=== PATIENT | female | born 1995 | race African-American/Black ===

== ENCOUNTER 2017-04-30 09:05 | Emergency (ER) | payer OTHER ==
[2017-04-30 09:12] VITALS: BP 130/74; PULSE 100; TEMP 98; BMI 36.3
--- NOTE | 2017-04-30 10:11 | PDOC ---
History of Present Illness - General Chief Complaint: Cold Symptoms Stated Complaint: COLD SYMPTOMS Time Seen by Provider: 04/30/17 09:34 History Source: Patient Exam Limitations: No Limitations - History of Present Illness Initial Comments: 04/30/17 10:28 My Chief Complaint: sneezing, nasal congestion, sore throat, cough History of present illness: Patient is a 21-year-old female with no significant medical issues 21 weeks here today complaining of a productive cough of dark yellow, sore throat, nasal congestion with sneezing 5 days. Patient denies any shortness of breath. She denies any nausea or vomiting or difficulty swallowing or breathing. Patient denies any abdominal discomfort. Her nephew is sick with similar symptoms. Patient has had no recent travel. Timing/Duration: intermittent, other (5 days) Severity: mild (sneezing, nasal congestion, productive cough, sore throat ) Associated Symptoms: reports: cough (productive yellowish ), other (sore throat , nasal congestion ) Past History - Past Medical History Allergies/Adverse Reactions: Allergies Allergy/AdvReac Type Severity Reaction Status Date / Time No Known Allergies Allergy Verified 04/30/17 09:12 Home Medications: Ambulatory Orders Azithromycin [Zithromax 250mg Tablets -] 250 mg PO UTDICT #6 tab 04/30/17 COPD: No Other medical history: NONE - Suicide/Smoking/Psychosocial Hx Smoking Status: No Smoking History: Never smoked Number of Cigarettes Smoked Daily: 0 Hx Alcohol Use: No Drug/Substance Use Hx: No Substance Use Type: None Review of Systems - Review of Systems Able to Perform ROS?: Yes Constitutional: No: Symptoms Reported HEENTM: Yes: Nose Congestion, Throat Pain Respiratory: Yes: Productive cough (yellowish for 5 days ). No: Shortness of Breath, SOB with Exertion, SOB at Rest, Stridor, Wheezing Cardiac (ROS): No: Symptoms Reported ABD/GI: No: Symptoms Reported : No: Symptoms Reported Musculoskeletal: No: Symptoms Reported Integumentary: No: Symptoms Reported *Physical Exam - Vital Signs Last Vital Signs Temp Pulse Resp BP Pulse Ox 98.0 F 100 H 20 130/74 98 04/30/17 09:10 04/30/17 09:10 04/30/17 09:10 04/30/17 09:10 04/30/17 09:10 - Physical Exam General Appearance: Yes: Appropriately Dressed HEENT: positive: TMs Normal, Pharyngeal Erythema, Tonsillar Erythema (with no uvular deviation ), Nasal Congestion. negative: Muffled/Hoarse voice, Tonsillar Exudate, Rhinorrhea, Sinus Tenderness Neck: negative: Lymphadenopathy (R), Lymphadenopathy (L) Respiratory/Chest: positive: Lungs Clear, Normal Breath Sounds. negative: Chest Tender, Respiratory Distress Cardiovascular: positive: Regular Rhythm, Regular Rate, S1, S2 Integumentary: positive: Normal Color Neurologic: positive: Alert, Normal Response, Responsive Medical Decision Making - Medical Decision Making 04/30/17 10:30 Patient is a 21-year-old female with no significant medical issues 21 weeks here today complaining of a productive cough of dark yellow, sore throat, nasal congestion with sneezing 5 days. Patient denies any shortness of breath. She denies any nausea or vomiting or difficulty swallowing or breathing. Patient denies any abdominal discomfort. Her nephew is sick with similar symptoms. Patient has had no recent travel. pharyngitis R/O strep throat Bronchitis nsasl congestion PLAN: throat C & S rapid negative azithromcyin 250 mg 2 tabs today than one tab daily for following 4 days 04/30/17 11:16 *DC/Admit/Observation/Transfer Diagnosis at time of Disposition: Bronchitis, Nasal congestion - Discharge Dispostion Disposition: HOME Condition at time of disposition: Stable - Prescriptions Prescriptions: Azithromycin [Zithromax 250mg Tablets -] 250 mg PO UTDICT #6 tab - Referrals Referrals: Swati Vidal MD [Primary Care Provider] - - Patient Instructions Additional Instructions: Drink a lot a fluids and rest It might be helpful to put a humidifier next to your bed, clean as directed by maintenance worker swimming pool Follow-up with your primary care provider within the next few days Return to emergency room if symptoms worsen any difficulty swallowing or breathing Patient voiced understanding of discharge instructions and all questions were answered And thank you for choosing [facility] emergency room premedical needs today - Post Discharge Activity
== END 2017-04-30 11:28 | disposition home or self-care (01) ==
LOC: JERFT 09:05
DX: O26.892 Other specified pregnancy related conditions, second trimester (principal); J40 Bronchitis, not specified as acute or chronic; Z3A.21 21 weeks gestation of pregnancy
CPT/HCPCS: 87070; 87430; 99281-25

== ENCOUNTER 2017-07-24 18:21 | Emergency (ER) | payer OTHER ==
[2017-07-24 19:35] VITALS: BP 103/70; PULSE 100; BMI 48.8
--- NOTE | 2017-07-24 19:35 | PDOC ---
Rapid Medical Evaluation Time Seen by Provider: 07/24/17 19:31 Medical Evaluation: Allergies Allergy/AdvReac Type Severity Reaction Status Date / Time No Known Allergies Allergy Verified 04/30/17 09:12 07/24/17 19:31 pt c/o: cough x 4 days and sneezing since yesterday, 33 weeks , no fever Pt on brief exam: vss. lcta Pt ordered for : none pt to proceed to the ED: Discharge Disposition - Diagnosis Cough - Referrals - Patient Instructions - Post Discharge Activity
--- NOTE | 2017-07-24 21:06 | PDOC ---
History of Present Illness - General Chief Complaint: Cold Symptoms Stated Complaint: COUGH Time Seen by Provider: 07/24/17 19:31 History Source: Patient Exam Limitations: No Limitations - History of Present Illness Initial Comments: 07/24/17 21:03 This is a 21-year-old primigravida female who is a 33 weeks gestation who presents to the emergency department with 5 days of dry cough and 1 day of sneezing. She denies fevers, chills, headaches, sinus pain, worsening shortness of breath, abdominal pain, nausea, vomiting. Past History - Past Medical History Allergies/Adverse Reactions: Allergies Allergy/AdvReac Type Severity Reaction Status Date / Time No Known Allergies Allergy Verified 04/30/17 09:12 Home Medications: Ambulatory Orders NK [No Known Home Medication] 07/24/17 COPD: No - Suicide/Smoking/Psychosocial Hx Smoking Status: No Smoking History: Never smoked Have you smoked in the past 12 months: No Number of Cigarettes Smoked Daily: 0 Information on smoking cessation initiated: No Hx Alcohol Use: No Drug/Substance Use Hx: No Substance Use Type: None Respiratory Specific PMHX - Complaint Specific PMHX Angina: No Bronchitis: No Pneumonia: No Pulmonary Embolus: No TB (Tuberculosis): No Review of Systems - Review of Systems Able to Perform ROS?: Yes Is the patient limited Uzbek proficient: No Constitutional: No: Symptoms Reported HEENTM: Yes: See HPI Respiratory: Yes: See HPI Cardiac (ROS): No: Symptoms Reported ABD/GI: No: Symptoms Reported : No: Symptoms Reported Musculoskeletal: No: Symptoms Reported Integumentary: No: Symptoms Reported Neurological: No: Symptoms reported Endocrine: No: Symptoms Reported Hematologic/Lymphatic: No: Symptoms Reported *Physical Exam - Vital Signs Last Vital Signs Temp Pulse Resp BP Pulse Ox 97.2 F L 100 H 21 103/70 100 07/24/17 19:32 07/24/17 19:32 07/24/17 19:32 07/24/17 19:32 07/24/17 19:32 - Physical Exam General Appearance: Yes: Appropriately Dressed. No: Apparent Distress HEENT: positive: Normal ENT Inspection Neck: positive: Trachea midline, Supple Respiratory/Chest: positive: Lungs Clear, Normal Breath Sounds. negative: Respiratory Distress, Accessory Muscle Use Cardiovascular: positive: Regular Rhythm, Regular Rate, S1, S2. negative: Edema , Murmur Gastrointestinal/Abdominal: positive: Normal Bowel Sounds Extremity: positive: Normal Capillary Refill Integumentary: positive: Normal Color, Dry, Warm Neurologic: positive: Alert, Normal Response Medical Decision Making - Medical Decision Making 07/24/17 21:09 A/P: 21-year-old Primigravid woman without significant past medical history and currently 33 weeks gestation with cough and sneezing Oropharynx clear without erythema or exudates. No sinus tenderness. Lungs clear to auscultation bilaterally Upper respiratory infection. Will advise patient on symptomatically treatment area I will stress the importance of avoiding all cough medicines with the exception cepacol. *DC/Admit/Observation/Transfer Diagnosis at time of Disposition: Cough Upper respiratory infection Qualifiers: URI type: unspecified viral URI Qualified Code(s): J06.9 - Acute upper respiratory infection, unspecified - Discharge Dispostion Disposition: HOME Condition at time of disposition: Stable Admit: No - Referrals Referrals: Swati Vidal MD [Primary Care Provider] - - Patient Instructions Printed Discharge Instructions: DI for Viral Upper Respiratory Infection -- Adult Additional Instructions: Rest, drink lots of fluids: Teas, water, soups, Pedialyte Saltwater gargles Steamy showers/seem to face break up mucus Avoid contact with others until fevers and cough resolved Lots of handwashing and good hygiene Continue [id number] medications for symptomatic relief Tylenol for fever and pain Cepacol lozenges for cough Followup with private physician in one to 2 days as needed Return to emergency department for worsened symptoms, fevers, dehydration - Post Discharge Activity
[2017-07-24 21:19] VITALS: TEMP 97.6
== END 2017-07-24 21:22 | disposition home or self-care (01) ==
LOC: JERFT 18:21
DX: O99.89 Other specified diseases and conditions complicating pregnancy, childbirth and the puerperium (principal); J06.9 Acute upper respiratory infection, unspecified; Z3A.33 33 weeks gestation of pregnancy
CPT/HCPCS: 99281-25

== ENCOUNTER 2017-08-31 20:23 | Inpatient (IN) | payer OTHER ==
[2017-08-31] MEDS ORDERED: AMPICILLIN - 2 GM in SODIUM CHLORIDE 100 ML IVPB ONE (21:00)
[2017-08-31] MEDS ORDERED: DEXTROSE 5%-LACTATED RINGERS 1,000 ML IV SCH (21:30)
[2017-08-31 21:35] VITALS: BMI 51.7
[2017-08-31] MEDS ORDERED: AMPICILLIN SODIUM 2 GM VIAL ONE (21:57)
[2017-08-31 22:10] LABS: URINE APPEARANCE SLCLOUDY; URINE BILIRUBIN NEGATIVE (<2.0 mg/dL); URINE BLOOD NEGATIVE (NEGATIVE); URINE COLOR YELLOW; URINE GLUCOSE (UA) NEGATIVE (NEGATIVE); URINE KETONE NEGATIVE (NEGATIVE); URINE LEUK ESTERASE TRACE (NEGATIVE); URINE NITRITE NEGATIVE (NEGATIVE); URINE PROTEIN NEGATIVE (NEGATIVE); URINE UROBILINOGEN NEGATIVE mg/dL (0.2-1.0)
[2017-08-31 22:13] LABS: EPI CELLS FEW /HPF (FEW); URINE MUCUS RARE
[2017-08-31 22:14] LABS: EOS % 1.4 % (0-4.5); HEMATOCRIT 39.5 % (32.4-45.2); HEMOGLOBIN 13.4 GM/dL (10.7-15.3); LYMPH % 25.5 % (8-40); MCH 28.5 pg (25.7-33.7); MEAN PLT VOLUME 9.2 fl (7.5-11.1); MONO % 10.7 % (3.8-10.2); NEUT % 61.4 % (42.8-82.8); PLATELET COUNT 273 K/MM3 (134-434); WHITE BLOOD COUNT 8.9 K/mm3 (4.0-10.0)
[2017-08-31 22:21] LABS: COCAINE, UR NEGATIVE ng/ml (CUTOFF=300); METHADONE, UR NEGATIVE ng/ml (CUTOFF=300); OPIATES, URI NEGATIVE ng/ml (CUTOFF=300); PHENCYCLIDINE,URINE NEGATIVE ng/ml (CUTOFF=25); URINE AMPHETAMINES NEGATIVE ng/ml (CUTOFF=500); URINE BARBITURATES NEGATIVE ng/ml (CUTOFF=200); URINE BENZODIAZEPINES NEGATIVE ng/ml (CUTOFF=200)
[2017-08-31 22:24] LABS: INR 0.87 (0.82-1.09); PROTHROMBIN TIME (PATIENT) 9.8 SEC (9.98-11.88)
[2017-08-31 22:27] LABS: ACTIVATED PTT 28.9 SECONDS (26.9-34.4)
[2017-08-31 22:31] LABS: ANION GAP 12 (8-16); BLOOD UREA NITROGEN 8 mg/dL (7-18); CALCIUM 8.7 mg/dL (8.5-10.1); CHLORIDE 104 mmol/L (98-107); CO2 22 mmol/L (21-32); CREATININE 0.6 mg/dL (0.55-1.02); GLUCOSE,RANDOM 84 mg/dL (74-106); POTASSIUM 4.1 mmol/L (3.5-5.1); SODIUM 138 mmol/L (136-145)
--- NOTE | 2017-08-31 23:11 | HP ---
Past Medical History - Admission Chief Complaint: Leakage of fluid History of Present Illness: 21 yo , LMP 11/29/16, EDC 09/09/17, @ 38.5 weeks gestation presents to L&D c /o rupture of membrane at 6pm. She follows up at [facility] for care. She's morbidly obese. She denies any contractions pain. History Source: Patient Limitations to Obtaining History: No Limitations - Past Medical History ...: 1 ...Para: 0 ...Term: 0 ...: 0 ...Spon : 0 ...Induced : 0 ...Multiple Gestation: 0 ...LMP: 11/29/16 ... Weeks Gestation by Dates: 39.2 ...EDC by Dates: 09/05/17 ...EDC by Sono: 09/09/17 - Past Surgical History Past Surgical History: Yes: None Hx Myomectomy: No Hx Transabdominal Cerclage: No - Smoking History Smoking history: Never smoked Have you smoked in the past 12 months: No Aproximately how many cigarettes per day: 0 - Alcohol/Substance Use Hx Alcohol Use: No History of Substance Use: reports: None - Social History Usual Living Arrangement: Yes: Alone History of Recent Travel: No Home Medications - Allergies Allergies/Adverse Reactions: Allergies Allergy/AdvReac Type Severity Reaction Status Date / Time No Known Allergies Allergy Verified 08/31/17 21:27 - Home Medications Home Medications: Ambulatory Orders Vitamins (Sjr) - 1 tab PO DAILY 08/31/17 Review of Systems - Review of Systems Constitutional: reports: No Symptoms Eyes: reports: No Symptoms HENT: reports: No Symptoms Neck: reports: No Symptoms Cardiovascular: reports: No Symptoms Respiratory: reports: No Symptoms Gastrointestinal: reports: No Symptoms Genitourinary: reports: Other (Leakage of fluid) Breasts: reports: No Symptoms Reported Musculoskeletal: reports: No Symptoms Neurological: reports: No Symptoms Hematology/Lymphatic: reports: No Symptoms Psychiatric: reports: No Symptoms Pain Intensity: 0 Physical Exam - Maternity Vital Signs: Vital Signs Temperature 98.2 F 08/31/17 22:00 Pulse Rate 98 H 08/31/17 22:00 Respiratory Rate 20 08/31/17 22:00 Blood Pressure 159/81 08/31/17 22:00 O2 Sat by Pulse Oximetry (%) Constitutional: Yes: Well Nourished Eyes: Yes: Conjunctiva Clear HENT: Yes: Atraumatic Neck: Yes: Supple Cardiovascular: Yes: Regular Rate and Rhythm Lungs: Clear to auscultation Breast(s): Yes: WNL - Abdominal Exam/OB Number of Fetuses: Single Presentation: Vertex Intensity: Unaware - Vaginal Exam/OB Dilatation (cm): 1-2 Effacement (%): 70 Amniotic Membrane Status: Ruptured Nitrazine Test: Positive Amniotic Fluid: Yes: Clear Presentation: Vertex/Position Station: -3 - Physical Exam Musculoskeletal: Yes: WNL Extremities: No: Calf Tenderness ...Motor Strength: WNL Psychiatric: Yes: Alert, Oriented - Labs Lab Results: CBC, BMP 08/31/17 21:45 08/31/17 21:45 Problem List - Problems (1) SROM (spontaneous rupture of membranes) Code(s): NCR6275 - Assessment/Plan Spontaneous rupture of membrane Morbid obesity Consider transfer to [facility]
--- NOTE | 2017-08-31 23:53 | DS ---
Physical Examination Vital Signs: Vital Signs Temperature 98.2 F 08/31/17 22:00 Pulse Rate 93 H 08/31/17 23:00 Respiratory Rate 19 08/31/17 23:00 Blood Pressure 126/75 08/31/17 23:00 O2 Sat by Pulse Oximetry (%) Neck: Yes: Supple, Trachea Midline Cardiovascular: Yes: Regular Rate and Rhythm Respiratory: Yes: Regular Gastrointestinal: Yes: Normal Bowel Sounds Integumentary: Yes: WNL Neurological: Yes: Alert, Oriented ...Motor Strength: WNL Psychiatric: Yes: Alert, Oriented Labs: CBC, BMP 08/31/17 21:45 08/31/17 21:45 Discharge Summary Reason For Visit: LABOR Current Active Problems SROM (spontaneous rupture of membranes) (Acute) Procedures: Principal: Non Stress Test Hospital Course: Patient presents c/o spontaneous rupture of membrane. She was then transferred to [facility]. Condition: Good - Instructions Diet, Activity, Other Instructions: Regular diet Disposition: TRANSFER ACUTE CARE/OTHER HOSP - Home Medications Comprehensive Discharge Medication List: Ambulatory Orders Vitamins (Sjr) - 1 tab PO DAILY 08/31/17
[2017-09-01 00:17] VITALS: BP 148/89; PULSE 96
[2017-09-01 00:46] VITALS: TEMP 98
[2017-09-01] MEDS ORDERED: AMPICILLIN - 1 GM in SODIUM CHLORIDE 100 ML IVPB SCH (01:00)
== END 2017-09-01 00:57 | disposition short-term general hospital (02) | DRG 566 ==
LOC: JDEL 20:23 → JLDR 21:00
PROVIDERS: ADMIT Obstetrics & Gynecology; ATTEND Obstetrics & Gynecology
DX: O42.92 Full-term premature rupture of membranes, unspecified as to length of time between rupture and onset of labor (principal); Z68.43 Body mass index [BMI] 50.0-59.9, adult; E66.01 Morbid (severe) obesity due to excess calories; O99.213 Obesity complicating pregnancy, third trimester; Z3A.38 38 weeks gestation of pregnancy
CPT/HCPCS: 36415; 80048; 80307; 81003; 81015; 85025; 85610; 85730; 86593; 86850; 86900; 86901; 87389

== ENCOUNTER 2018-05-05 23:48 | Emergency (ER) | payer OTHER ==
--- NOTE | 2018-05-06 00:27 | PDOC ---
History of Present Illness - General Stated Complaint: CHEST PAIN Time Seen by Provider: 05/05/18 23:57 History Source: Patient Exam Limitations: No Limitations - History of Present Illness Timing/Duration: other (ribcage pain for 4 days) Past History - Past Medical History Allergies/Adverse Reactions: Allergies Allergy/AdvReac Type Severity Reaction Status Date / Time No Known Allergies Allergy Verified 05/06/18 00:34 Asthma: No Cancer: No Cardiac Disorders: No COPD: No Diabetes: No HTN: No Seizures: No Thyroid Disease: No - Suicide/Smoking/Psychosocial Hx Smoking Status: No Smoking History: Never smoked Have you smoked in the past 12 months: No Number of Cigarettes Smoked Daily: 0 Hx Alcohol Use: No Drug/Substance Use Hx: No Substance Use Type: None Hx Substance Use Treatment: No Review of Systems - Review of Systems Able to Perform ROS?: Yes Is the patient limited Albanian proficient: No Constitutional: No: Symptoms Reported, See HPI, Chills, Diaphoresis, Fever, Loss of Appetite, Malaise, Night Sweats, Weakness, Weight Stable, Unintentional Wgt. Loss, Unexplained wgt Loss, Other HEENTM: No: Symptoms Reported, See HPI, Eye Pain, Blurred Vision, Tearing, Recent change in vision, Double Vision, Cataracts, Ear Pain, Ocular Prothesis, Ear Discharge, Nose Pain, Nose Congestion, Tinnitus, Nose Bleeding, Hearing Loss , Throat Pain, Throat Swelling, Mouth Pain, Dental Problems, Difficulty Swallowing, Mouth Swelling, Other Respiratory: No: Symptoms reported, See HPI, Cough, Orthopnea, Shortness of Breath, SOB with Exertion, SOB at Rest, Stridor, Wheezing, Productive cough, Hemoptysis, Other Cardiac (ROS): No: Symptoms Reported, See HPI, Chest Pain, Edema, Irregular Heart Rate, Lightheadedness, Palpitations, Syncope, Chest Tightness, Other ABD/GI: No: Symptoms Reported, See HPI, Abdominal Distended, Abd. Pain w/ defecation, Blood Streaked Bowels, Constipated, Diarrhea, Difficulty Swallowing , Nausea, Poor Appetite, Poor Fluid Intake, Rectal Bleeding, Vomiting, Indigestion, Abdominal cramping, Tarry Stools, Other : No: Symptoms Reported, See HPI, Burning, Dysuria, Discharge, Frequency, Flank Pain, Hematuria, Incontinence, Pain, Urgency, Testicular Mass, Testicular Swelling, Lesions, Testicular Pain, Other Musculoskeletal: Yes: Other (left anterior ribcage pain) Integumentary: No: Symptoms Reported, See HPI, Bruising, Change in Color, Change in Hair/Nails, Dryness, Erythema, Flushing, Lesions, Lumps, Pallor, Pruritus, Rash, Sweating, Other Neurological: No: Symptoms reported, See HPI, Headache, Numbness, Paresthesia, Pre-Existing Deficit, Seizure, Tingling, Tremors, Weakness, Unsteady Gait, Ataxia, Dizziness, Other Psychiatric: No: Anxiety, Depression, Frequent Crying, Stressors, Sleep Pattern Change, Emotional Problems, Mood Swings, Change in Appetite, Other Endocrine: No: Symptoms Reported, See HPI, Excessive Sweating, Flushing, Intolerance to Cold, Intolerance to Heat, Increased Hunger, Increased Thirst, Increased Urine, Unexplained Weight Gain, Unexplained Weight Loss, Change in Weight, Other Hematologic/Lymphatic: No: Symptoms Reported, See HPI, Anemia, Blood Clots, Easy Bleeding, Easy Bruising, Bleeding Diathesis, Lymph Node Abnormalities, Swollen Glands, Other *Physical Exam - Physical Exam General Appearance: Yes: Obese HEENT: positive: Normal Voice Neck: positive: Supple Respiratory/Chest: positive: Lungs Clear Cardiovascular: positive: Regular Rhythm, Regular Rate Gastrointestinal/Abdominal: positive: Protuberent Musculoskeletal: positive: Normal Inspection Extremity: positive: Normal Inspection, Normal Range of Motion Integumentary: positive: Normal Color, Warm Neurologic: positive: Fully Oriented, Alert, Motor Strength 5/5 ED Treatment Course - LABORATORY CBC & Chemistry Diagram: 05/06/18 00:50 Medical Decision Making - Medical Decision Making 05/06/18 00:32 Morbidly obese 22-year-old female brought in by ambulance for left anterior rib cage pain since Friday when she helped her family move a refrigerator. Yesterday she had some pain and took Tylenol. She did the same thing this morning. However walking home she got excruciating pain, and called 911 She does not have any shortness of breath Past medical history denies any significant past medical history. Past surgical history none. 1, para 1. Childbirth this August 2017 05/06/18 02:08 05/06/18 02:31 *DC/Admit/Observation/Transfer - Discharge Dispostion Condition at time of disposition: Fair - Referrals - Patient Instructions - Post Discharge Activity
[2018-05-06 00:34] VITALS: BMI 47.6
[2018-05-06 01:35] LABS: ALBUMIN 3.4 g/dl (3.4-5.0); ALK PHOS 77 U/L (45-117); ANION GAP 5 MMOL/L (8-16); BILIRUBIN,TOTAL 0.5 mg/dL (0.2-1); BLOOD UREA NITROGEN 14 mg/dL (7-18); CALCIUM 8.4 mg/dL (8.5-10.1); CHLORIDE 105 mmol/L (98-107); CO2 29 mmol/L (21-32); CREATININE 0.9 mg/dL (0.55-1.3); GLUCOSE,RANDOM 99 mg/dL (74-106); POTASSIUM 4.1 mmol/L (3.5-5.1); SGOT/AST 13 U/L (15-37); SGPT/ALT 17 U/L (13-61); SODIUM 139 mmol/L (136-145); TOT PROT 7.6 g/dl (6.4-8.2)
[2018-05-06] MEDS ORDERED: IBUPROFEN 400 MG TABLET (FP) PO ONE ×2 (02:04→03:08)
--- NOTE | 2018-05-06 08:34 | PDOC ---
*Physical Exam - Vital Signs Last Vital Signs Temp Pulse Resp BP Pulse Ox 98.4 F 71 18 138/86 100 05/06/18 08:28 05/06/18 08:28 05/06/18 08:28 05/06/18 08:28 05/06/18 08:28 <Yumiko Varela - Last Filed: 05/06/18 08:30> - Vital Signs Last Vital Signs Temp Pulse Resp BP Pulse Ox 98.4 F 71 18 138/86 100 05/06/18 08:28 05/06/18 08:28 05/06/18 08:28 05/06/18 08:28 05/06/18 08:28 <Reymundo Justice - Last Filed: 05/06/18 09:42> ED Treatment Course - LABORATORY CBC & Chemistry Diagram: 05/06/18 00:50 - ADDITIONAL ORDERS Additional order review: Laboratory Results 05/06/18 05/06/18 05/06/18 00:50 00:50 00:50 Sodium 139 Potassium 4.1 Chloride 105 Carbon Dioxide 29 Anion Gap 5 L BUN 14 Creatinine 0.9 Creat Clearance w eGFR > 60 Random Glucose 99 Calcium 8.4 L Total Bilirubin 0.5 AST 13 L ALT 17 Alkaline Phosphatase 77 Troponin I < 0.02 Cancelled Total Protein 7.6 Albumin 3.4 Urine HCG, Qual Negative - Medications Given in the ED: ED Medications Discontinued Medications Generic Name Dose Route Start Last Admin Trade Name Freq PRN Reason Stop Dose Admin Ibuprofen 800 mg 05/06/18 02:04 05/06/18 03:12 Motrin - PO 05/06/18 02:05 800 mg ONCE ONE Administration <Yumiko Varela - Last Filed: 05/06/18 08:30> - LABORATORY CBC & Chemistry Diagram: 05/06/18 00:50 - ADDITIONAL ORDERS Additional order review: Laboratory Results 05/06/18 05/06/18 05/06/18 07:31 00:50 00:50 Sodium 139 Potassium 4.1 Chloride 105 Carbon Dioxide 29 Anion Gap 5 L BUN 14 Creatinine 0.9 Creat Clearance w eGFR > 60 Random Glucose 99 Calcium 8.4 L Total Bilirubin 0.5 AST 13 L ALT 17 Alkaline Phosphatase 77 Creatine Kinase 105 Troponin I < 0.02 < 0.02 Cancelled Total Protein 7.6 Albumin 3.4 Urine HCG, Qual 05/06/18 00:50 Sodium Potassium Chloride Carbon Dioxide Anion Gap BUN Creatinine Creat Clearance w eGFR Random Glucose Calcium Total Bilirubin AST ALT Alkaline Phosphatase Creatine Kinase Troponin I Total Protein Albumin Urine HCG, Qual Negative - Medications Given in the ED: ED Medications Discontinued Medications Generic Name Dose Route Start Last Admin Trade Name Edith PRN Reason Stop Dose Admin Ibuprofen 800 mg 05/06/18 02:04 05/06/18 03:12 Motrin - PO 05/06/18 02:05 800 mg ONCE ONE Administration <Reymundo Justice - Last Filed: 05/06/18 09:42> Medical Decision Making - Medical Decision Making 05/06/18 08:30 22 yo F ho obesity here with chest pain . signed out to me by dr. syed. awaiting repeat troponin. cxr unremarkble. ekg nonspecific findings. no risk factors for PE trop negative. follow up repeat troponoin.pending. will dc home on receipt of repeat trop and fu with cardiologyl; <Yumiko Varela - Last Filed: 05/06/18 08:30> *DC/Admit/Observation/Transfer <Yumiko Varela - Last Filed: 05/06/18 08:30> <Reymundo Justice - Last Filed: 05/06/18 09:42> Diagnosis at time of Disposition: Chest pain Qualifiers: Chest pain type: unspecified Qualified Code(s): R07.9 - Chest pain, unspecified - Discharge Dispostion Disposition: HOME Condition at time of disposition: Improved - Referrals Referrals: Swati Vidal MD [Primary Care Provider] - Neal Mcclellan MD [Staff Physician] - - Patient Instructions Printed Discharge Instructions: DI for Atypical Chest Pain Additional Instructions: you should follow up wtih your primary doctor. return for any problems or concerns. you can take ibuprofen 400 mg every 8 hrs as needed for pain. return for any difficulty breathing, recurrent pain or any concerns. - Post Discharge Activity
[2018-05-06 09:57] VITALS: BP 135/74; PULSE 81; TEMP 98.1
--- NOTE | 2018-05-06 11:40 | EKG ---
Test Reason : Blood Pressure : / mmHG Vent. Rate : 073 BPM Atrial Rate : 073 BPM P-R Int : 160 ms QRS Dur : 082 ms QT Int : 376 ms P-R-T Axes : 036 008 011 degrees QTc Int : 414 ms NORMAL SINUS RHYTHM MINIMAL VOLTAGE CRITERIA FOR LVH, MAY BE NORMAL VARIANT BORDERLINE ECG NO PREVIOUS ECGS AVAILABLE Confirmed by JAILENE SOARES MD ([id number]) on 05/06/2018 11:40:02 AM Referred By: Confirmed By:JAILENE SOARES MD
== END 2018-05-06 09:57 | disposition home or self-care (01) ==
LOC: JER 23:48
DX: R07.89 Other chest pain (principal); X50.0XXA Overexertion from strenuous movement or load, initial encounter; Y93.E9 Activity, other interior property and clothing maintenance; Y92.038 Other place in apartment as the place of occurrence of the external cause; Y99.8 Other external cause status
CPT/HCPCS: 36415; 71046-TC-FY; 71101-TC-FY; 80053; 82550; 84484; 84703; 93005; 93010; 99283-25

== ENCOUNTER 2018-11-25 18:19 | Emergency (ER) | payer OTHER | END 2018-11-25 19:45 | disposition home or self-care (01) | LOC: JERFT 18:19 ==

== ENCOUNTER 2019-01-18 01:59 | Emergency (ER) | payer OTHER ==
--- NOTE | 2019-01-18 02:25 | PDOC ---
History of Present Illness - General Stated Complaint: CHEST PAIN Time Seen by Provider: 01/18/19 02:07 History Source: Patient Exam Limitations: No Limitations - History of Present Illness Initial Comments: 01/18/19 02:20 23YOF with h/o morbid obesity, YOLANDE (not on CPAP x 16 months) who p/w midline anterior chest pressure which is non-reproducible and has been present for the past 90 minutes constantly. She denies SOB, palpitations, diaphoresis, f/c/n/v/d /c. She had dinner at 8:30 tonight, prior to the onset she was doing some house cleaning and then took a shower, and at this time had the onset. She had this happen once before a couple of months ago and was seen here in the ED, had negative cardiac workup, and was able to be discharged home. She has not taken any medications for her symptoms. Past History - Past Medical History Allergies/Adverse Reactions: Allergies Allergy/AdvReac Type Severity Reaction Status Date / Time No Known Allergies Allergy Verified 05/06/18 00:34 Home Medications: Ambulatory Orders Cyclobenzaprine HCl [Flexeril 10 mg] 10 mg PO BID 10 Days #20 tablet 11/25/18 Naproxen [Naprosyn] 500 mg PO BID 10 Days #20 tablet 11/25/18 Asthma: No Cancer: No Cardiac Disorders: No COPD: No Diabetes: No HTN: No Seizures: No Thyroid Disease: No - Immunization History TDAP Vaccination: Yes Immunization Up to Date: Yes - Suicide/Smoking/Psychosocial Hx Smoking Status: No Smoking History: Never smoked Have you smoked in the past 12 months: No Number of Cigarettes Smoked Daily: 0 Hx Alcohol Use: No Drug/Substance Use Hx: No Substance Use Type: None Hx Substance Use Treatment: No Review of Systems - Review of Systems Able to Perform ROS?: Yes Comments:: 01/18/19 02:30 GEN: no fever, chills, malaise, generalized weakness, or weight change HEENT: no ear pain, sore throat, vision change, or eye pain CV: chest pain, no palpitations, lightheadedness, syncope, or edema RESP: no cough, wheezing, or SOB GI: no abdominal pain, nausea, vomiting, diarrhea, constipation, or white/black/ bloody stool : no dysuria, hematuria, incontinence, retention, bleeding, or discharge MSK: no neck/back pain, muscle weakness/pain, or joint swelling/pain NEURO: no headache, seizure, vertigo, numbness, tingling, or focal weakness PSYCH: no substance use, no behavior change SKIN: no jaundice, no rash ROS otherwise negative except as noted in HPI *Physical Exam - Physical Exam Comments: 01/18/19 02:31 GENERAL: nontoxic-appearing, morbidly obese, A/Ox4, no distress, answers questions appropriately HEENT: PERRLA, EOMI, moist mucous membranes NECK/BACK: no midline ttp, no spinal stepoff or deformity, no hematoma, full ROM , neck supple CARDIOVASCULAR: regular rate/rhythm, normal S1S2, no MGR, strong peripheral pulses, capillary refill <2 seconds, extremities wwp, no edema CHEST WALL: tenderness to compression of the midsternal area LUNGS/RESPIRATORY: no respiratory distress, CTAB GI/ABDOMEN: symmetric glyp-ie-yefj, normoactive BS, soft, no ttp, no midline pulsatile masses : no CVA tenderness EXTREMITIES: no muscle atrophy, no acute deformity SKIN: warm and dry, no pallor, no jaundice, no rash, no bruising, no skin breakdown, no cuts, no lesions NEUROLOGICAL: GCS 15, CN II-XII grossly intact, 5/5 strength proximally and distally, no facial droop ED Treatment Course - LABORATORY CBC & Chemistry Diagram: 01/18/19 02:53 01/18/19 02:53 Medical Decision Making - Medical Decision Making 01/18/19 02:32 23YOF with morbid obesity and YOLANDE not on CPAP, who p/w chest pain. Initial Vital Signs Temp Pulse Resp BP Pulse Ox 98.6 F 85 19 159/96 100 01/18/19 02:00 01/18/19 02:00 01/18/19 02:00 01/18/19 02:00 01/18/19 02:00 Exam: As noted in Physical Exam section. DDX IBNLT: ACS, pericarditis, tamponade, aortic dissection, AAA, PTX, PE, esophageal tear, esophagitis (e.g. pill, infectious), esophageal stricture, esophageal FB, gastritis, PUD, pancreatitis, cholecystitis, cholangitis, colitis , bowel perforation, PNA/bronchitis, pleurisy, pleuritis, MVP, pulmonary HTN, musculoskeletal, panic/anxiety, etc. W/U ordered: Labs as noted below, EKG CXR. TX ordered: monitor, ASA 324, Pepcid, Maalox EKG: Reviewed; results as noted in ECG Review section. CXR: Nothing acute hCG is negative and patient's pain best fits picture of costochondritis; toradol ordered. 01/18/19 04:02 Patient is resting comfortably. Labs: Reassessment: Repeat VS: ADMIT Repeat cardiac enzymes ordered. HEART score indicated Pt is higher risk and should be managed in hospital with cardiology consult. The Pt is unsafe for discharge at this time. They require further hospital observation, workup, and treatment. Microblog sent to [facility] for admission.Blank Decision to Admit order is placed per ED protocol. Spoke with admitting team business center representative, in agreement Pt to be admitted to: Telemetry Decision to Admit order placed to admitting team covering attending. Consult order placed to cardiology on-call provider. DISCHARGE Repeat cardiac enzymes are negative. No new abnormal rhythms have been observed on the corking machine operator. On last reassessment VS are stable, Pts pain is resolved, and exam is benign. The Pts HEART score indicates they are low risk and do not require admission currently. The Pt is appropriate for discharge with close outpatient follow up. They are comfortable with this plan and will follow up with their primary care provider in 1-3 days. Specific return precautions are discussed and they will come back to the ER if necessary. *DC/Admit/Observation/Transfer - Referrals Referrals: Swati Vidal MD [Primary Care Provider] - Gregorio Felipe MD [Staff Physician] - - Patient Instructions Printed Discharge Instructions: DI for Chest Pain Additional Instructions: You were seen in the ER for chest pain. We did lab work on your blood and urine , an electrocardiogram, and a chest x-ray, and we did not find any concerning abnormalities. Your symptoms improved with the medications we gave you in the ER. After our assessment, we do not believe you are having a medical emergency at this time, and we believe you are safe to go home. Take over the counter pain medications for your pain, as instructed on the medication label. Please follow up with your primary care provider in 1-3 days. Also follow up with a roller coaster operator (we are giving you referral information). Call their clinic as soon as possible, tell them you were seen in the ER, and tell them you need an appointment. If you have any new or worsening symptoms, especially worsening chest pain, jaw pain, shoulder/arm pain, shortness of breath, sweats, nausea, loss of consciousness, palpitations, or other symptoms, please come back to the ER at any time (24 hours a day). If you are having severe or life threatening symptoms, or symptoms that make it unsafe to drive or have someone drive you, please call 911. - Post Discharge Activity
[2019-01-18] MEDS ORDERED: ASPIRIN 81 MG CHEWABLE TABLETS PO ONE (02:30)
[2019-01-18 02:32] VITALS: TEMP 98.6; BMI 50.8
[2019-01-18] MEDS ORDERED: ASPIRIN 81 MG CHEWABLE TABLETS ONE (02:54)
[2019-01-18 03:10] LABS: BASO % 1.3 % (0-2.0); EOS % 2.3 % (0-4.5); HEMATOCRIT 38.2 % (32.4-45.2); HEMOGLOBIN 12.7 GM/dL (10.7-15.3); LYMPH % 41.8 % (8-40); MCH 28.2 pg (25.7-33.7); MCHC 33.1 g/dl (32.0-36.0); MEAN CELL VOLUME 85.2 fl (80-96); MEAN PLT VOLUME 9.6 fl (7.5-11.1); MONO % 8.9 % (3.8-10.2); NEUT % 45.7 % (42.8-82.8); PLATELET COUNT 278 K/MM3 (134-434); RBC 4.48 M/mm3 (3.60-5.2); WHITE BLOOD COUNT 8.3 K/mm3 (4.0-10.0)
[2019-01-18] MEDS ORDERED: MAG HYDROX/AL HYDROX/SIMETH -MYLANTA- ORAL SUSPENSION PO ONE (03:18)
[2019-01-18] MEDS ORDERED: FAMOTIDINE 20 MG/50 ML IVPB 20 MG/50 ML MG IVPB ONE ×2 (03:18→03:35)
[2019-01-18] MEDS ORDERED: MAG HYDROX/AL HYDROX/SIMETH 30 ML UNIT-DOSE CUP ONE (03:34)
--- NOTE | 2019-01-18 03:35 | PDOC ---
Attending Attestation - Resident Resident Name: OdonnellAzeb - ED Attending Attestation I have performed the following: I have examined & evaluated the patient, The case was reviewed & discussed with the resident, I agree w/resident's findings & plan - HPI HPI: 01/18/19 03:42 Pt comes with 2 hrs of chest pain. She has hx of only obstructive sleep apnea. She came from home. 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 She has a gnawing repetetive pain; sounds like gastritis/GERD, but unclear, as pt thinks it is not related to food. Pt felt the pain when she was showering tonight. Pain for worse when she lay down. She has no hx of viral illness and this doesn't sound like pericarditis. Pt traveled to [facility] recently, but by plane. No long drives; pt is neither smoker or on OCPs. No risk factor for PE, only obesity. Pt has no fever and no chills Pt eats normally; she rarely skips meals. - Physicial Exam PE: 01/18/19 03:45 Agree with resident exam - Medical Decision Making 01/18/19 03:45 Pt has normal CBC and EKG and she is awaiting CXR and chemistries. She is not . 01/18/19 06:18 Labs normal. EKG normal; CXR normal. Pt will get a 2nd card enz and she will be discharged
[2019-01-18] MEDS ORDERED: KETOROLAC TROMETHAMINE 30 MG/1 ML VIAL IVPUSH ONE ×2 (03:44→03:49)
[2019-01-18] MEDS ORDERED: KETOROLAC TROMETHAMINE 30 MG/1 ML VIAL ONE (04:03)
[2019-01-18 04:23] LABS: ALBUMIN 3.4 g/dl (3.4-5.0); ALK PHOS 75 U/L (45-117); ANION GAP 5 MMOL/L (8-16); BILIRUBIN,TOTAL 0.2 mg/dL (0.2-1); BLOOD UREA NITROGEN 16.5 mg/dL (7-18); CALCIUM 9.1 mg/dL (8.5-10.1); CHLORIDE 104 mmol/L (98-107); CO2 29 mmol/L (21-32); GLUCOSE,RANDOM 105 mg/dL (74-106); LIPASE 215 U/L (73-393); POTASSIUM 3.7 mmol/L (3.5-5.1); SGOT/AST 8 U/L (15-37); SGPT/ALT 17 U/L (13-61); SODIUM 139 mmol/L (136-145); TOT PROT 7.2 g/dl (6.4-8.2)
[2019-01-18 04:30] LABS: PH,URINE 5.5 (5.0-8.0); URINE APPEARANCE CLEAR; URINE BILIRUBIN NEGATIVE (NEGATIVE); URINE COLOR YELLOW; URINE GLUCOSE (UA) NEGATIVE (NEGATIVE); URINE KETONE TRACE (NEGATIVE); URINE LEUK ESTERASE NEGATIVE (NEGATIVE); URINE NITRITE NEGATIVE (NEGATIVE); URINE PROTEIN NEGATIVE (NEGATIVE)
[2019-01-18 07:30] VITALS: BP 130/58; PULSE 68
--- NOTE | 2019-01-18 11:06 | EKG ---
Test Reason : Blood Pressure : / mmHG Vent. Rate : 071 BPM Atrial Rate : 071 BPM P-R Int : 180 ms QRS Dur : 088 ms QT Int : 376 ms P-R-T Axes : 037 009 009 degrees QTc Int : 408 ms NORMAL SINUS RHYTHM NORMAL ECG WHEN COMPARED WITH ECG OF 06-MAY-2018 00:47, NO SIGNIFICANT CHANGE WAS FOUND Confirmed by TIKI MACIEL MD ([id number]) on 01/18/2019 11:06:01 AM Referred By: Confirmed By:TIKI MACIEL MD
== END 2019-01-18 07:31 | disposition home or self-care (01) ==
LOC: JER 01:59
PROC: 3E033GC Introduction of Other Therapeutic Substance into Peripheral Vein, Percutaneous Approach (ICD-10-PCS; principal; 2019-01-18)
PROC: 3E0333Z Introduction of Anti-inflammatory into Peripheral Vein, Percutaneous Approach (ICD-10-PCS; 2019-01-18)
DX: R07.9 Chest pain, unspecified (principal); G47.33 Obstructive sleep apnea (adult) (pediatric); E66.01 Morbid (severe) obesity due to excess calories; Z68.43 Body mass index [BMI] 50.0-59.9, adult
CPT/HCPCS: 36415; 71045-TC-FY; 80053; 81003; 82550; 83690; 84484; 84703; 85025; 87086; 93005; 93010; 99283-25

== ENCOUNTER 2019-08-12 15:58 | Emergency (ER) | payer OTHER ==
--- NOTE | 2019-08-12 16:10 | PDOC ---
Rapid Medical Evaluation Time Seen by Provider: 08/12/19 16:07 Medical Evaluation: Allergies Allergy/AdvReac Type Severity Reaction Status Date / Time No Known Allergies Allergy Verified 05/06/18 00:34 08/12/19 16:07 I have performed a brief in-person evaluation of this patient. The patient presents with a chief complaint of: chest pain and dizziness x 1 hour Pertinent physical exam findings: morbidly obese, well appearing, lungs CTAB I have ordered the following: cards workup The patient will proceed to the ED for further evaluation. Discharge Disposition - Diagnosis Chest discomfort - Referrals - Patient Instructions - Post Discharge Activity
[2019-08-12 16:11] VITALS: BP 122/3; PULSE 87; TEMP 98.4; BMI 50.1
[2019-08-12] MEDS ORDERED: MECLIZINE HCL 25 MG TABLET (FP) PO ONE (16:37)
[2019-08-12] MEDS ORDERED: SODIUM CHLORIDE 1,000 ML IV STA (16:37)
[2019-08-12 16:56] LABS: BASO % 1.1 % (0-2.0); HEMATOCRIT 39.8 % (32.4-45.2); HEMOGLOBIN 13.1 GM/dL (10.7-15.3); LYMPH % 43.5 % (8-40); MCH 28.3 pg (25.7-33.7); MCHC 32.9 g/dl (32.0-36.0); MEAN CELL VOLUME 85.8 fl (80-96); MEAN PLT VOLUME 9.6 fl (7.5-11.1); MONO % 10.5 % (3.8-10.2); NEUT % 42.9 % (42.8-82.8); PLATELET COUNT 283 K/MM3 (134-434); RBC 4.64 M/mm3 (3.60-5.2); RDW 14.3 % (11.6-15.6); WHITE BLOOD COUNT 6.7 K/mm3 (4.0-10.0)
--- NOTE | 2019-08-12 17:04 | PDOC ---
History of Present Illness - General Chief Complaint: Lightheaded Stated Complaint: DIZZY Time Seen by Provider: 08/12/19 16:07 History Source: Patient Exam Limitations: No Limitations Past History - Travel Traveled outside of the country in the last 30 days: No Close contact w/someone who was outside of country & ill: No - Past Medical History Allergies/Adverse Reactions: Allergies Allergy/AdvReac Type Severity Reaction Status Date / Time No Known Allergies Allergy Verified 05/06/18 00:34 Home Medications: Ambulatory Orders Cyclobenzaprine HCl [Flexeril 10 mg] 10 mg PO BID 10 Days #20 tablet 11/25/18 Naproxen [Naprosyn] 500 mg PO BID 10 Days #20 tablet 11/25/18 Asthma: No Cancer: No Cardiac Disorders: No COPD: No Diabetes: No HTN: No Seizures: No Thyroid Disease: No - Immunization History TDAP Vaccination: Yes Immunization Up to Date: Yes - Psycho Social/Smoking Cessation Hx Smoking Status: No Smoking History: Never smoked Have you smoked in the past 12 months: No Number of Cigarettes Smoked Daily: 0 Information on smoking cessation initiated: No Hx Alcohol Use: No Drug/Substance Use Hx: No Substance Use Type: None Hx Substance Use Treatment: No Review of Systems - Review of Systems Able to Perform ROS?: Yes Comments:: 08/13/19 00:55 CONSTITUTIONAL: Absent: fever, chills, diaphoresis, generalized weakness, malaise, loss of ja etite HEENT: Absent: rhinorrhea, nasal congestion, throat pain, throat swelling, difficulty swallowing, mouth swelling, ear pain, eye pain, visual Changes CARDIOVASCULAR: Present: Chest pain Absent: chest pain, loss of consciousness, palpitations, irregular heart rate, peripheral edema RESPIRATORY: Absent: cough, shortness of breath, dyspnea with exertion, orthopnea, wheezing, stridor, hemoptysis GASTROINTESTINAL: Absent: abdominal pain, abdominal distension, nausea, vomiting, diarrhea, constipation, melena, hematochezia GENITOURINARY: Absent: dysuria, frequency, urgency, hesitancy, hematuria, flank pain, genital pain MUSCULOSKELETAL: Absent: myalgia, arthralgia, joint swelling SKIN: Absent: rash, itching, pallor HEMATOLOGIC/IMMUNOLOGIC: Absent: easy bleeding, easy bruising, lymphadenopathy, frequent infections ENDOCRINE: Absent: unexplained weight gain, unexplained weight loss, heat intolerance, cold intolerance NEUROLOGIC: Present: Dizziness Absent: headache, focal weakness or paresthesias, unsteady gait, seizure, mental status changes, bladder or bowel incontinence PSYCHIATRIC: Absent: anxiety, depression, suicidal or homicidal ideation, hallucinations. Is the patient limited Serbian proficient: No *Physical Exam - Vital Signs Last Vital Signs Temp Pulse Resp BP Pulse Ox 98.4 F 87 20 122/3 L 100 08/12/19 16:07 08/12/19 16:07 08/12/19 16:07 08/12/19 16:07 08/12/19 16:07 - Physical Exam 08/13/19 01:01 GENERAL: Well developed, well nourished. Awake and alert. No acute distress. HEENT: Normocephalic, atraumatic. PERRLA, EOMI. No conjunctival pallor. Sclera are non-icteric. Moist mucous membranes. Oropharynx is clear. NECK: Supple. Full ROM. No JVD. Carotid pulses 2+ and symmetric, without bruits. No thyromegaly. No lymphadenopathy. CARDIOVASCULAR: Regular rate and rhythm. No murmurs, rubs, or gallops. Distal pulses are 2+ and symmetric. PULMONARY: No evidence of respiratory distress. Lungs clear to auscultation bilaterally. No wheezing, rales or rhonchi. ABDOMINAL: Soft. Non-tender. Non-distended. No rebound or guarding. No organomegaly. Normoactive bowel sounds. MUSCULOSKELETAL Tenderness to palpation chest wall along the sternal boarder. Normal range of motion at all joints. No bony deformities or tenderness. No CVA tenderness. EXTREMITIES: No cyanosis. No clubbing. No edema. No calf tenderness. SKIN: Warm and dry. Normal capillary refill. No rashes. No jaundice. NEUROLOGICAL: Alert, awake, appropriate. Cranial nerves 2-12 intact. No deficits to light touch and temperature in face, upper extremities and lower extremities. No motor deficits in the in face, upper extremities and lower extremities. Normoreflexic in the upper and lower extremities. Normal speech. Toes are down-going bilaterally. Gait is normal without ataxia. PSYCHIATRIC: Cooperative. Good eye contact. Appropriate mood and affect. ED Treatment Course - LABORATORY CBC & Chemistry Diagram: 08/12/19 16:20 08/12/19 16:20 - ADDITIONAL ORDERS Additional order review: 08/12/19 16:20 RBC 4.64 MCV 85.8 MCHC 32.9 RDW 14.3 MPV 9.6 Neutrophils % 42.9 Lymphocytes % 43.5 H Monocytes % 10.5 H Eosinophils % 2.0 Basophils % 1.1 Medical Decision Making - Medical Decision Making 08/12/19 17:04 Patient is a 23-year-old female with medical history of obesity, presents to the ER today for chest pain starting approximately half an hour to arrival. She states that the pain is sharp and worse with movement. She admits to starting a new exercise routine this week. She also admits to dizziness. She states that she felt dizzy at work so she sat down and the symptoms have since improved. Denies shortness of breath, fever, difficulty breathing, nausea, vomiting, calf pain and recent travel. A/P: Atypical chest pain On exam patient with regular rate and rhythm, S1-S2 present with no murmurs rubs or gallops. Tenderness palpation of the chest wall 2 troponins negative. Pt PERC's out. Chest x-ray without acute chest pathology. EKG shows normal sinus rhythm with a rate of 79 bpm, normal intervals and axis. No acute ST-T wave changes. Meclizine given for dizziness which is since improved. Likely a muscle wall strain. We will discharge home with primary care follow-up. I discussed the physical exam findings, ancillary test results and final diagnoses with the patient. I answered all of the patient's questions. The patient was satisfied with the care received and felt comfortable with the discharge plan and treatment plan. The Patient agrees to follow up with the primary care physician/specialist within 24-72 hours. Return precautions were given. Discharge - Discharge Information Problems reviewed: Yes Clinical Impression/Diagnosis: Chest discomfort Condition: Stable Disposition: HOME - Admission No - Follow up/Referral Referrals: Jhon Spring MD [Staff Physician] - - Patient Discharge Instructions Patient Printed Discharge Instructions: DI for Atypical Chest Pain Additional Instructions: You were evaluated for your chest pain today. Your lab work, EKG and chest x-ray were normal. Your pain may be due to a muscle strain. You may take Tylenol 650 mg every 6 hours as needed for pain. Please drink plenty of fluids and eat a balanced diet. Please follow-up with your primary care doctor this week for further evaluation and management of your symptoms. Return to the ER for worsening chest pain, lightheadedness, shortness of breath, or if you have any changes in your symptoms. - Post Discharge Activity Work/Back to School Note: Back to Work
[2019-08-12 17:34] LABS: ALBUMIN 3.6 g/dl (3.4-5.0); ALK PHOS 56 U/L (45-117); ANION GAP 6 MMOL/L (8-16); BILIRUBIN,TOTAL 0.4 mg/dL (0.2-1); BLOOD UREA NITROGEN 11.2 mg/dL (7-18); CHLORIDE 107 mmol/L (98-107); CO2 28 mmol/L (21-32); CREATININE 0.8 mg/dL (0.55-1.3); GLUCOSE,RANDOM 75 mg/dL (74-106); SGOT/AST 10 U/L (15-37); SGPT/ALT 16 U/L (13-61); SODIUM 141 mmol/L (136-145); TOT PROT 7.4 g/dl (6.4-8.2)
--- NOTE | 2019-08-13 11:32 | EKG ---
Test Reason : Blood Pressure : / mmHG Vent. Rate : 079 BPM Atrial Rate : 079 BPM P-R Int : 162 ms QRS Dur : 078 ms QT Int : 348 ms P-R-T Axes : 042 021 029 degrees QTc Int : 399 ms NORMAL SINUS RHYTHM NORMAL ECG WHEN COMPARED WITH ECG OF 18-JAN-2019 03:00, NO SIGNIFICANT CHANGE WAS FOUND Confirmed by MAY CORTEZ MD ([id number]) on 08/13/2019 11:32:27 AM Referred By: Confirmed By:MAY CORTEZ MD
== END 2019-08-12 21:20 | disposition home or self-care (01) ==
LOC: JER 15:58
PROC: 3E0337Z Introduction of Electrolytic and Water Balance Substance into Peripheral Vein, Percutaneous Approach (ICD-10-PCS; principal; 2019-08-12)
DX: R07.89 Other chest pain (principal); E66.01 Morbid (severe) obesity due to excess calories; Z68.43 Body mass index [BMI] 50.0-59.9, adult
CPT/HCPCS: 36415; 71046-TC-FY; 80053; 82550; 83735; 84484; 85025; 93005; 93010; 96360; 99285-25; J7030

== ENCOUNTER 2021-02-14 17:20 | Emergency (ER) | payer OTHER ==
[2021-02-14 17:44] VITALS: BP 114/75; PULSE 86; TEMP 99; BMI 51.1
[2021-02-14 20:07] LABS: BASO % 1.3 % (0-2.0); EOS % 1.8 % (0-4.5); HEMATOCRIT 37.9 % (32.4-45.2); HEMOGLOBIN 12.8 GM/dL (10.7-15.3); LYMPH % 35.6 % (8-40); MCH 29.3 pg (25.7-33.7); MCHC 33.8 g/dl (32.0-36.0); MEAN CELL VOLUME 86.6 fl (80-96); MEAN PLT VOLUME 9.1 fl (7.5-11.1); MONO % 10.5 % (3.8-10.2); NEUT % 50.8 % (42.8-82.8); PLATELET COUNT 273 10^3/uL (134-434); RBC 4.37 M/mm3 (3.60-5.2); RDW 13.9 % (11.6-15.6); WHITE BLOOD COUNT 7.4 K/mm3 (4.0-10.0)
[2021-02-14 21:14] LABS: EPI CELLS 19 /uL (0-25.1); HYALINE CASTS 1 /uL (0-3.1); PH,URINE 7.5 (5.0-8.0); URINE APPEARANCE CLEAR; URINE BACTERIA 359 /uL (0-1359); URINE BILIRUBIN NEGATIVE (NEGATIVE); URINE COLOR YELLOW; URINE GLUCOSE (UA) NEGATIVE (NEGATIVE); URINE KETONE TRACE (NEGATIVE); URINE LEUK ESTERASE NEGATIVE (NEGATIVE); URINE NITRITE NEGATIVE (NEGATIVE); URINE PROTEIN NEGATIVE (NEGATIVE); URINE RBC 55 /uL (0-23.9); URINE WBC 7 /uL (0-25.8)
== END 2021-02-14 21:33 | disposition home or self-care (01) ==
LOC: JER 17:20
DX: O26.851 Spotting complicating pregnancy, first trimester (principal); Z3A.01 Less than 8 weeks gestation of pregnancy
CPT/HCPCS: 36415; 76817-TC; 81003; 84702; 85025; 86850; 86900; 86901; 99284-25

== ENCOUNTER 2022-04-27 18:26 | Emergency (ER) | payer OTHER ==
[2022-04-27 18:35] VITALS: BP 113/83; PULSE 83; RESP 18; TEMP 98.2
[2022-04-27] MEDS ORDERED: IBUPROFEN 600 MG TABLET (FP) PO ONE ×2 (19:23→19:27)
== END 2022-04-27 19:59 | disposition home or self-care (01) ==
LOC: JERFT 18:26 → JER 18:26 → JERFT 19:59
DX: S89.82XA Other specified injuries of left lower leg, initial encounter (principal); W01.0XXA Fall on same level from slipping, tripping and stumbling without subsequent striking against object, initial encounter
CPT/HCPCS: 73562-TC-LT-FY; 99283-25